=== PATIENT | male | born 1995 | race Caucasian/White ===

== ENCOUNTER 2021-12-20 03:27 | Emergency (ER) | payer SELFPAY ==
[2021-12-20 04:29] LABS: BUN/CREATININE RATIO 16 (0-10)
[2021-12-20 05:14] LABS: HEMOGLOBIN 13.9 gm/dl (14.0-17.5); RED BLOOD COUNT 4.33 M/UL (4.20-5.50)
[2021-12-20] MEDS ORDERED: ZOFRAN ODT 4 MG4 MG GT (05:56)
== END 2021-12-20 06:10 | disposition home or self-care (01) ==
LOC: ER1 03:27
DX: R07.9 Chest pain, unspecified (principal); R11.10 Vomiting, unspecified
CPT/HCPCS: 71045; 80053; 82550; 82553; 84484; 85025; 93005; 99285; J2405